=== PATIENT | female | born 1970 | race Caucasian/White ===

== ENCOUNTER 2019-03-03 21:40 | Emergency (ER) | payer OTHER ==
[2019-03-03 22:18] VITALS: PULSE 73
[2019-03-03 22:40] LABS: INR 0.9 (<1.2); Partial Thromboplastin Time 24.8 sec (22.0-30.0); Prothrombin Time 9.5 sec (9.0-12.0)
[2019-03-03] MEDS ORDERED: ASPIRIN 81 MG PO STA (22:41)
[2019-03-03 22:51] LABS: ALT 22 U/L (9-52); AST 19 U/L (14-36); African American GFR (CKD) >90 (>60 ml/min/1.73 sqM); Alkaline Phosphatase 87 U/L (38-126); Anion Gap 9 mmol/L; Blood Urea Nitrogen 15 mg/dL (7-17); Calcium 9.7 mg/dL (8.4-10.2); Carbon Dioxide 26 mmol/L (22-30); Chloride 108 mmol/L (98-107); Glucose 156 mg/dL (74-99); Magnesium 2.1 mg/dL (1.6-2.3); Non-African American GFR(CKD) >90 (>60 ml/min/1.73 sqM); Sodium 143 mmol/L (137-145); Total Bilirubin 0.1 mg/dL (0.2-1.3); Total Protein 6.9 g/dL (6.3-8.2)
--- NOTE | 2019-03-03 23:03 | ED ---
Chest Pain HPI - General Chief Complaint: Chest Pain Stated Complaint: chest pain Time Seen by Provider: 03/03/19 22:03 Source: patient Mode of arrival: wheelchair Limitations: no limitations - History of Present Illness Initial Comments: Nettie is a 48yo female with known CAD s/p STEMI 5 years ago stent placement. Patient was previously on Plavix but due to loss of insurance no longer takes that medication. She does take a daily aspirin. She has not followed up with cardiology a number of years she's not had a stress test since her STEMI. Javier lam presents the emergency department [facility] for evaluation of chest pain. Patient reports chest pain began on Wednesday. It is associated with shortness of breath but no diaphoresis or lightheadedness. Patient reports intermittent subjective fever with no chills nausea or vomiting. She denies any recent illness. Patient reports today she took a nitro with minimal improvement in her pain at which time her daughter decided to bring her to the ER for evaluation. - Related Data Home Medications Medication Instructions Recorded Confirmed No Known Home Medications 03/03/19 03/03/19 Allergies Allergy/AdvReac Type Severity Reaction Status Date / Time No Known Allergies Allergy Verified 03/03/19 22:45 Review of Systems ROS Statement: Those systems with pertinent positive or pertinent negative responses have been documented in the HPI. ROS Other: All systems not noted in ROS Statement are negative. EKG Findings - EKG Comments: EKG Findings:: EKG was obtained due to complaint of chest pain, EKG was obtained at 2201, rate is 70 rhythm is sinus is normal axis are normal intervals, SD 116, QRS 84, QTC is 412 there are no acute ST elevations or depressions or snow evidence of acute ischemia or infarction. Past Medical History Past Medical History: Hyperlipidemia, Hypertension, Myocardial Infarction ([place]) History of Any Multi-Drug Resistant Organisms: None Reported Past Surgical History: Section, Heart Catheterization With Stent Additional Past Surgical History / Comment(s): kidney transplant Past Psychological History: No Psychological Hx Reported Smoking Status: Current every day smoker Past Alcohol Use History: None Reported Past Drug Use History: None Reported General Exam - General Exam Comments Initial Comments: Physical Exam GENERAL: Patient is well-developed and well-nourished. Patient is nontoxic and well- hydrated and is in no distress. HENT: Normocephalic, Atraumatic. EYES: PERRL, EOMI PULMONARY: Unlabored respirations. No audible rales rhonchi or wheezing was noted. CARDIOVASCULAR: There is a regular rate and rhythm without any murmurs gallops or rubs. ABDOMEN: Soft and nontender with normal bowel sounds. SKIN: Skin is clear with no lesions or rashes and otherwise unremarkable. : Deferred NEUROLOGIC: Patient is alert and oriented x3. Moving all extremities spontaneously MUSCULOSKELETAL: Normal extremities with adequate strength and full range of motion. No lower extremity swelling or edema. No calf tenderness. PSYCHIATRIC: Normal psychiatric evaluation. Limitations: no limitations Course Vital Signs 03/03/19 03/03/19 03/03/19 21:46 22:10 23:24 Temperature 98.0 F 98.4 F Pulse Rate 83 73 73 Respiratory 18 14 18 Rate Blood Pressure 145/81 156/79 156/74 O2 Sat by Pulse 100 100 96 Oximetry Chest Pain MDM - MDM The patient was seen and evaluated, history was obtained from the patient Patient is a 48-year-old female with known coronary artery disease presenting w ith 3 days of chest pain, pain is nonexertional, not associated with any diaphoresis or lightheadedness. It is associated with shortness of breath. Patient does believe the pain improved this any after using nitro. Patient does have a history of coronary artery disease she does not follow up with cardiology she has not been compliant with her Plavix due to insurance issues. Arrival patient stated that she does not have insurance currently and if she is not having cardiac she will not stay in the hospital. Patients daughter at bedside states that she believes her mother is suffering from anxiety because daughter and 1mo old grandson are moving out of state in the coming week I offered the patient Nitro paste, as SL nitro had improved pain prior to arrival however patient declined stating that she did not plan on staying. Patient also concerned about cost. I advised the patient that there are multiple financial support systems and that her heart health is very important. Patient's troponin was negative patient was advised of this and stated that she like to leave. Patient aware that she is leaving AGAINST MEDICAL ADVICE The patient has decided to leave against medical advice because of concerns about cost and wanting to spend time with her family prior to them leaving the state The patient has adequate capacity to make medical decisions. The patient refuses hospital admission and wants to be discharged. The risks have been explained to the patient, including worsening illness, chronic pain, permanent disability and . The benefits of workup/admission have also been explained, including the availability and proximity of nurses, physicians, monitoring, diagnostic testing, treatment and valuation by cardiology The patient was able to understand and state the risks and benefits of hospital admission. This was witnessed by nurse Tammie and me. The patient the opportunity to ask questions about their medical condition. The patient was treated to the extent that they would allow and knows that they may return for care at any time. Disposition Clinical Impression: Chest pain Disposition: Left Against Medical Advice Condition: Fair Instructions (If sedation given, give patient instructions): Chest Pain (ED) Is patient prescribed a controlled substance at d/c from ED?: No Referrals: Naomi Wilson DO [Primary Care Provider] - 1-2 days
[2019-03-03 23:26] VITALS: BP 156/74; RESP 18; TEMP 98.4
[2019-03-03 23:42] LABS: Potassium 3.8 mmol/L (3.5-5.1)
== END 2019-03-03 23:17 | disposition left against medical advice (07) ==
LOC: EC 21:40
DX: R07.9 Chest pain, unspecified (principal); F41.9 Anxiety disorder, unspecified; R06.02 Shortness of breath; E78.5 Hyperlipidemia, unspecified; I10 Essential (primary) hypertension; I25.10 Atherosclerotic heart disease of native coronary artery without angina pectoris; I25.2 Old myocardial infarction; F17.200 Nicotine dependence, unspecified, uncomplicated; Z79.02 Long term (current) use of antithrombotics/antiplatelets; Z79.82 Long term (current) use of aspirin; Z95.5 Presence of coronary angioplasty implant and graft; Z91.19 Patient's noncompliance with other medical treatment and regimen; Z53.29 Procedure and treatment not carried out because of patient's decision for other reasons; Z94.0 Kidney transplant status
CPT/HCPCS: 36415; 80053; 83735; 83880; 84484; 85025; 85610; 85730; 93005; 99285

== ENCOUNTER 2023-08-27 04:02 | Inpatient (IN) | payer OTHER ==
[2023-08-27] MEDS: SODIUM CHLORIDE 0.9% 1,000 ML IV STA ×2 (04:40→10:15)
[2023-08-27 04:58] LABS: Basophils # (A) 0.1 k/uL (0-0.2); Basophils % (A) 0 %; Eosinophils # (A) 0.2 k/uL (0-0.7); Eosinophils % (A) 1 %; HCT 39.6 % (34.0-46.0); HGB 12.6 gm/dL (11.4-16.0); Lymphocytes # (A) 1.4 k/uL (1.0-4.8); Lymphocytes % (A) 8 %; MCH 29.7 pg (25.0-35.0); MCHC 31.8 g/dL (31.0-37.0); MCV 93.2 fL (80.0-100.0); Mean Platelet Volume 7.7; Monocytes # (A) 0.7 k/uL (0-1.0); Monocytes % (A) 4 %; Neutrophils # (A) 15.1 k/uL (1.3-7.7); Neutrophils % (A) 86 %; Platelet Count 315 k/uL (150-450); RBC 4.25 m/uL (3.80-5.40); RDW 13.1 % (11.5-15.5); WBC 17.5 k/uL (3.8-10.6)
[2023-08-27 05:08] LABS: ALT 15 U/L (4-34); AST 19 U/L (14-36); African American GFR (CKD) 86 (>60 ml/min/1.73 sqM); Albumin 3.8 g/dL (3.5-5.0); Alkaline Phosphatase 116 U/L (38-126); Anion Gap 3 mmol/L; Blood Urea Nitrogen 16 mg/dL (7-17); Calcium 9.7 mg/dL (8.4-10.2); Carbon Dioxide 26 mmol/L (22-30); Chloride 111 mmol/L (98-107); Glucose 134 mg/dL (74-99); Lipase 108 U/L (23-300); Non-African American GFR(CKD) 75 (>60 ml/min/1.73 sqM); Potassium 3.8 mmol/L (3.5-5.1); Sodium 140 mmol/L (137-145); Total Bilirubin 0.3 mg/dL (0.2-1.3); Total Protein 6.8 g/dL (6.3-8.2)
[2023-08-27] MEDS: HYDROmorphone 1 MG/ML 1 ML SYRINGE IVP STA ×2 (06:24→09:02)
[2023-08-27] MEDS: ONDANSETRON 4 MG/2 ML VIAL IVP STA (06:25)
[2023-08-27] MEDS: SODIUM CHLORIDE 0.9% 1,000 ML IV ONE (06:25)
--- NOTE | 2023-08-27 08:16 | ED ---
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 Describes it as a sharp, unrelenting pain without radiation. She denies any urinary or bowel complaints. No fevers. She did not take anything for the pain before coming in. Denies history of similar. She does not follow with a program manager to monitor her kidney function. No other alleviating, precipitating or modifying factors (Ethel Falk) - Related Data Home Medications Medication Instructions Recorded Confirmed No Known Home Medications 03/03/19 08/27/23 Allergies Allergy/AdvReac Type Severity Reaction Status Date / Time No Known Allergies Allergy Verified 08/27/23 09:46 Review of Systems ROS Other: All systems not noted in ROS Statement are negative. <Naun Pena - Last Filed: 08/27/23 09:39> ROS Other: All systems not noted in ROS Statement are negative. <Ethel Falk - Last Filed: 08/29/23 05:20> ROS Statement: Those systems with pertinent positive or pertinent negative responses have been documented in the HPI. Past Medical History Past Medical History: Hyperlipidemia, Hypertension, Myocardial Infarction ([place]) History of Any Multi-Drug Resistant Organisms: None Reported Past Surgical History: Section, Heart Catheterization With Stent Additional Past Surgical History / Comment(s): kidney transplant Past Psychological History: No Psychological Hx Reported Smoking Status: Current every day smoker Past Alcohol Use History: None Reported Past Drug Use History: None Reported <Ethel Falk - Last Filed: 08/29/23 05:20> General Exam Limitations: no limitations General appearance: alert, in distress, other (Patient in significant pain) Head exam: Present: atraumatic, normocephalic, normal inspection Eye exam: Present: normal appearance, PERRL, EOMI. Absent: scleral icterus, conjunctival injection, periorbital swelling ENT exam: Present: normal exam, mucous membranes moist Neck exam: Present: normal inspection. Absent: tenderness, meningismus, lymphadenopathy Respiratory exam: Present: normal lung sounds bilaterally. Absent: respiratory distress, wheezes, rales, rhonchi, stridor Cardiovascular Exam: Present: normal rhythm, tachycardia, normal heart sounds. Absent: systolic murmur, diastolic murmur, rubs, gallop, clicks GI/Abdominal exam: Present: soft, normal bowel sounds. Absent: distended, tenderness, guarding, rebound, rigid Extremities exam: Present: normal inspection, full ROM, normal capillary refill. Absent: tenderness, pedal edema, joint swelling, calf tenderness Back exam: Present: normal inspection, CVA tenderness (R) Neurological exam: Present: alert, oriented X3, CN II-XII intact Psychiatric exam: Present: normal affect, normal mood Skin exam: Present: warm, dry, intact, normal color. Absent: rash <Ethel Falk - Last Filed: 08/29/23 05:20> Course Vital Signs 08/27/23 08/27/23 08/27/23 04:04 07:32 08:11 Temperature 99.9 F H 99.1 F 99.8 F H Pulse Rate 102 H 86 92 Pulse Rate [ Pulse Oximetery ] Respiratory 20 18 18 Rate Blood Pressure 161/99 155/89 152/88 Blood Pressure [Left Arm] O2 Sat by Pulse 100 99 Oximetry 08/27/23 08/27/23 08/27/23 10:00 11:00 14:00 Temperature 100.1 F H Pulse Rate 114 H 118 H Pulse Rate [ 129 H Pulse Oximetery ] Respiratory 20 20 17 Rate Blood Pressure 157/100 134/80 Blood Pressure 112/63 [Left Arm] O2 Sat by Pulse 95 92 L 94 L Oximetry 08/27/23 08/27/23 14:22 14:23 Temperature Pulse Rate 126 H 120 H Pulse Rate [ Pulse Oximetery ] Respiratory 20 20 Rate Blood Pressure 140/87 140/87 Blood Pressure [Left Arm] O2 Sat by Pulse 98 998 H Oximetry Medical Decision Making - Lab Data Result diagrams: 08/27/23 04:56 08/27/23 04:56 <Naun Pena - Last Filed: 08/27/23 09:39> - Lab Data Result diagrams: 08/28/23 06:47 08/28/23 06:47 <Ethel Falk - Last Filed: 08/29/23 05:20> - Medical Decision Making CT scan interpreted by myself shows right-sided UPJ stone 5 mm with hydronephrosis. Patient reevaluated and still complains of pain and nausea. Patient is updated on results and need for urine. Family is complaining of wait time however patient still has not provided urine. They are made aware of this. Case was discussed with Dr. Fuchs who would like to know urine results and he will be called back. Diagnosis: Ureterolithiasis, acute Comorbidity of single kidney status post donated kidney Complicated with elevated temperature of 99.8 Patient again reevaluated and still complaining of discomfort. Patient and family are updated. Patient does have concern for infection diagnosed at 9:40 AM. Blood culture and lactic acid and IV antibiotics have all been ordered. Case again discussed with Dr. Fuchs who will admit. He does request culture and antibiotics and n.p.o. 33 minutes total critical care (Naun Pena) Was pt. sent in by a medical professional or institution (, PA, ELECTRICAL FITTER, urgent care, hospital, or prison...) When possible be specific @ -No Did you speak to anyone other than the patient for history (EMS, parent, family, police, friend...)? What history was obtained from this source @ -Spoke with the patient's Did you review nursing and triage notes (agree or disagree)? Why? @ -I reviewed and agree with nursing and triage notes Were old charts reviewed (outside hosp., previous admission, EMS record, old EKG, old radiological studies, urgent care reports/EKG's, prison records)? Report findings @ -No old charts were reviewed Differential Diagnosis (chest pain, altered mental status, abdominal pain women, abdominal pain men, vaginal bleeding, weakness, fever, dyspnea, syncope, headache, dizziness, GI bleed, back pain, seizure, CVA, palpatations, mental health, musculoskeletal)? @ -Differential Abdominal Pain Women: Appendicitis, Cholecystitis, diverticulosis, ischemic bowel, pancreatitis, hepatitis, UTI, gastroenteritis, AAA, incarcerated hernia, bowel obstruction, constipation, inflammatory bowel, hepatitis, peptic ulcer disease, splenic infarction, perforated viscus, vulvitis, ovarian torsion, PID, kidney stone, placenta abruption, this is not meant to be an all-inclusive list EKG interpreted by me (3pts min.). @ -Not done X-rays interpreted by me (1pt min.). @ -None done CT interpreted by me (1pt min.). @ -Ordered however CT is pending at this time U/S interpreted by me (1pt. min.). @ -None done What testing was considered but not performed or refused? (CT, X-rays, U/S, labs)? Why? @ -None What meds were considered but not given or refused? Why? @ -None Did you discuss the management of the patient with other professionals (prof ziyad i.e. , PA, ELECTRICAL FITTER, lab, RT, psych nurse, social media strategist, varnish finisher, teacher, flight deck officer, home health care case manager)? Give summary @ -Spoke with Dr. Pena who will take over care of this patient Was smoking cessation discussed for >3mins.? @ -No Was critical care preformed (if so, how long)? @ -No Were there social determinants of health that impacted care today? How? (Homelessness, low income, unemployed, alcoholism, drug addiction, transportation, low edu. Level, literacy, decrease access to med. care, long-term, rehab)? @ -No Was there de-escalation of care discussed even if they declined (Discuss DNR or withdrawal of care, Hospice)? DNR status @ -No What co-morbidities impacted this encounter? (DM, HTN, Smoking, COPD, CAD, Cancer, CVA, ARF, Chemo, Hep., AIDS, mental health diagnosis, sleep apnea, morbid obesity)? @ -Single kidney Was patient admitted / discharged? Hospital course, mention meds given and route, prescriptions, significant lab abnormalities, going to OR and other pertinent info. @ -Upon arrival patient seen and evaluated in room 26. Thorough history and physical exam was performed. IV was established. Patient was given Dilaudid for pain control. Laboratory studies are conducted. CT is performed. Awaiting CT and urinalysis at this time. Patient will be signed out to Dr. Pena. (Ethel Falk) - Lab Data Lab Results 08/27/23 08/27/23 08/27/23 Range/Units 04:45 04:56 04:56 WBC 17.5 H (3.8-10.6) k/uL RBC 4.25 (3.80-5.40) m/uL Hgb 12.6 (11.4-16.0) gm/dL Hct 39.6 (34.0-46.0) % MCV 93.2 (80.0-100.0) fL MCH 29.7 (25.0-35.0) pg MCHC 31.8 (31.0-37.0) g/dL RDW 13.1 (11.5-15.5) % Plt Count 315 (150-450) k/uL MPV 7.7 Neutrophils % 86 % Lymphocytes % 8 % Monocytes % 4 % Eosinophils % 1 % Basophils % 0 % Neutrophils # 15.1 H (1.3-7.7) k/uL Lymphocytes # 1.4 (1.0-4.8) k/uL Monocytes # 0.7 (0-1.0) k/uL Eosinophils # 0.2 (0-0.7) k/uL Basophils # 0.1 (0-0.2) k/uL Sodium 140 (137-145) mmol/L Potassium 3.8 (3.5-5.1) mmol/L Chloride 111 H (98-107) mmol/L Carbon Dioxide 26 (22-30) mmol/L Anion Gap 3 mmol/L BUN 16 (7-17) mg/dL Creatinine 0.90 (0.52-1.04) mg/dL Est GFR (CKD-EPI)AfAm 86 (>60 ml/min/1.73 sqM) Est GFR (CKD-EPI)NonAf 75 (>60 ml/min/1.73 sqM) Glucose 134 H (74-99) mg/dL Plasma Lactic Acid [place] 1.2 (0.7-2.0) mmol/L Calcium 9.7 (8.4-10.2) mg/dL Total Bilirubin 0.3 (0.2-1.3) mg/dL AST 19 (14-36) U/L ALT 15 (4-34) U/L Alkaline Phosphatase 116 (38-126) U/L Total Protein 6.8 (6.3-8.2) g/dL Albumin 3.8 (3.5-5.0) g/dL Lipase 108 (23-300) U/L Urine Color Urine Appearance (Clear) Urine pH (5.0-8.0) Ur Specific [place] (1.001-1.035) Urine Protein (Negative) Urine Glucose (UA) (Negative) Urine Ketones (Negative) Urine Blood (Negative) Urine Nitrite (Negative) Urine Bilirubin (Negative) Urine Urobilinogen (<2.0) mg/dL Ur Leukocyte Esterase (Negative) Urine RBC (0-5) /hpf Urine WBC (0-5) /hpf Urine WBC Clumps (None) /hpf Ur Squamous Epith Cells (0-4) /hpf Urine Bacteria (None) /hpf 08/27/23 08/27/23 Range/Units 07:13 08:57 WBC (3.8-10.6) k/uL RBC (3.80-5.40) m/uL Hgb (11.4-16.0) gm/dL Hct (34.0-46.0) % MCV (80.0-100.0) fL MCH (25.0-35.0) pg MCHC (31.0-37.0) g/dL RDW (11.5-15.5) % Plt Count (150-450) k/uL MPV Neutrophils % % Lymphocytes % % Monocytes % % Eosinophils % % Basophils % % Neutrophils # (1.3-7.7) k/uL Lymphocytes # (1.0-4.8) k/uL Monocytes # (0-1.0) k/uL Eosinophils # (0-0.7) k/uL Basophils # (0-0.2) k/uL Sodium (137-145) mmol/L Potassium (3.5-5.1) mmol/L Chloride (98-107) mmol/L Carbon Dioxide (22-30) mmol/L Anion Gap mmol/L BUN (7-17) mg/dL Creatinine (0.52-1.04) mg/dL Est GFR (CKD-EPI)AfAm (>60 ml/min/1.73 sqM) Est GFR (CKD-EPI)NonAf (>60 ml/min/1.73 sqM) Glucose (74-99) mg/dL Plasma Lactic Acid [place] 1.5 (0.7-2.0) mmol/L Calcium (8.4-10.2) mg/dL Total Bilirubin (0.2-1.3) mg/dL AST (14-36) U/L ALT (4-34) U/L Alkaline Phosphatase (38-126) U/L Total Protein (6.3-8.2) g/dL Albumin (3.5-5.0) g/dL Lipase (23-300) U/L Urine Color Colorless Urine Appearance Cloudy H (Clear) Urine pH 5.5 (5.0-8.0) Ur Specific [place] 1.011 (1.001-1.035) Urine Protein 1+ H (Negative) Urine Glucose (UA) Negative (Negative) Urine Ketones Negative (Negative) Urine Blood Small H (Negative) Urine Nitrite Positive H (Negative) Urine Bilirubin Negative (Negative) Urine Urobilinogen <2.0 (<2.0) mg/dL Ur Leukocyte Esterase Large H (Negative) Urine RBC 17 H (0-5) /hpf Urine WBC >182 H (0-5) /hpf Urine WBC Clumps Few H (None) /hpf Ur Squamous Epith Cells <1 (0-4) /hpf Urine Bacteria Rare H (None) /hpf Critical Care Time Critical Care Time: Yes Total Critical Care Time: 33 <Naun Pena - Last Filed: 08/27/23 09:39> Disposition Is patient prescribed a controlled substance at d/c from ED?: No Time of Disposition: 09:41 <Naun Pena - Last Filed: 08/27/23 09:39> <Ethel Falk - Last Filed: 08/29/23 05:20> Clinical Impression: Ureterolithiasis Disposition: ADMITTED IP TO THIS HOSP Condition: Serious
--- NOTE | 2023-08-27 08:30 | CT ---
EXAMINATION TYPE: CT abdomen pelvis wo con DATE OF EXAM: 08/27/2023 COMPARISON: None INDICATION: right flank pain , heamtueia, h/o uterine CA with mets DLP: 419.6 mGycm, Automated exposure control for dose reduction was used. CONTRAST: 0 mL of Isovue 300. Study performed without Oral Contrast TECHNIQUE: Axial images were obtained from above the diaphragm to the pubic rami in the axial plane a t 5 mm thick sections. Reconstructed images are reviewed on the computer in the coronal plane. FINDINGS: Limited CT sections are obtained the lung bases. The lung bases are clear. Some coronary artery jenifer cification is present. CT ABDOMEN: Liver: Normal Spleen: Normal Pancreas: Normal Adrenal glands: The adrenal glands are normal. Gallbladder: Normal Kidneys: The right kidney is enlarged. There is prominent hydronephrosis present. An obstructing lew l stone at the ureteropelvic junction on the right knee be present measuring 0.5 cm. Mild hydroureter with periureteral stranding may be present proximally. Distal ureter is unremarkable. Left kidney is absent Aorta: Vascular calcification is within the aorta. Inferior vena cava: Normal. CT PELVIS: Loops of bowel within the abdomen and pelvis are normal. This study is performed without oral con trast limiting bowel evaluation. Appendix: Normal as visualized. Urinary bladder: Normal. Genitourinary structures: Uterus is unremarkable. Patient's reported uterine cancer is not appreciate d on the CT exam. Adnexa is normal. Osseous structures: No suspicious lytic or sclerotic lesions. IMPRESSION: 1. 0.5 cm obstructing right ureterovesical junction stone with hydronephrosis. 2. Note is made patient has a solitary right kidney without evidence of left kidney. 3. Normal appendix
[2023-08-27] MEDS: METOCLOPRAMIDE 5 MG/ML 2 ML VIAL IVP STA ×2 (09:01→10:21)
[2023-08-27 09:31] LABS: Appearance,Urine Cloudy (Clear); Bacteria,Urine Rare /hpf; Bilirubin,Urine Negative (Negative); Blood,Urine Small (Negative); Color,Urine Colorless; Glucose,Urine (UA) Negative (Negative); Ketones,Urine Negative (Negative); Leukocyte Esterase,Urine Large (Negative); Nitrite,Urine Positive (Negative); PH, Urine 5.5 (5.0-8.0); Protein,Urine 1+ (Negative); RBC,Urine 17 /hpf (0-5); Specific Gravity,Urine 1.011 (1.001-1.035); Squamous Epithelial Cell,Urine <1 /hpf (0-4); Urobilinogen,Urine <2.0 mg/dL (<2.0); WBC,Urine >182 /hpf (0-5)
[2023-08-27] MEDS ORDERED: NALOXONE 0.4 MG/ML 1 ML VIAL IV PRN (09:41)
[2023-08-27] MEDS: ACETAMINOPHEN IV (For NPO) 1,000 MG in EMPTY BAG 1 BAG IVPB STA (10:14)
--- NOTE | 2023-08-27 13:50 | P.GSHP ---
History of Present Illness H&P Date: 08/27/23 Chief Complaint: Right flank pain The patient is a 52-year-old white female who underwent a left donor nephrectomy approximately 25 years ago. She was treated for UTI during a , but has no other history of UTIs or urolithiasis. She now presents with acute right fla nk pain radiating to the abdomen. CT scan shows evidence of moderate right hydronephrosis due to a 5 mm right UPJ calculus. - Constitutional Constitutional: Denies chills, Denies fever Past Medical History Past Medical History: Hyperlipidemia, Hypertension, Myocardial Infarction ([place]) History of Any Multi-Drug Resistant Organisms: None Reported Past Surgical History: Section, Heart Catheterization With Stent Additional Past Surgical History / Comment(s): kidney transplant Past Psychological History: No Psychological Hx Reported Smoking Status: Current every day smoker Past Alcohol Use History: None Reported Past Drug Use History: None Reported Medications and Allergies Home Medications Medication Instructions Recorded Confirmed Type No Known Home Medications 03/03/19 08/27/23 History Allergies Allergy/AdvReac Type Severity Reaction Status Date / Time No Known Allergies Allergy Verified 08/27/23 09:46 Surgical - Exam Vital Signs Temp Pulse Resp BP Pulse Ox 99.9 F H 102 H 20 161/99 100 08/27/23 04:04 08/27/23 04:04 08/27/23 04:04 08/27/23 04:04 08/27/23 04:04 - General well developed, well nourished, no distress - Neck no masses, trachea midline - Respiratory normal respiratory effort - Abdomen Soft, non-distended, no mass. Mild right-sided tenderness and right CVA tenderness. No guarding or rebound. - Psychiatric oriented to time, oriented to person, oriented to place, speech is normal, memory intact Results - Labs 08/27/23 04:56 08/27/23 04:56 Abnormal Lab Results - Last 24 Hours (Table) 08/27/23 08/27/23 08/27/23 Range/Units 04:56 04:56 08:57 WBC 17.5 H (3.8-10.6) k/uL Neutrophils # 15.1 H (1.3-7.7) k/uL Chloride 111 H (98-107) mmol/L Glucose 134 H (74-99) mg/dL Urine Appearance Cloudy H (Clear) Urine Protein 1+ H (Negative) Urine Blood Small H (Negative) Urine Nitrite Positive H (Negative) Ur Leukocyte Esterase Large H (Negative) Urine RBC 17 H (0-5) /hpf Urine WBC >182 H (0-5) /hpf Urine WBC Clumps Few H (None) /hpf Urine Bacteria Rare H (None) /hpf Diabetes panel 08/27/23 Range/Units 04:56 Sodium 140 (137-145) mmol/L Potassium 3.8 (3.5-5.1) mmol/L Chloride 111 H (98-107) mmol/L Carbon Dioxide 26 (22-30) mmol/L BUN 16 (7-17) mg/dL Creatinine 0.90 (0.52-1.04) mg/dL Glucose 134 H (74-99) mg/dL Calcium 9.7 (8.4-10.2) mg/dL AST 19 (14-36) U/L ALT 15 (4-34) U/L Alkaline Phosphatase 116 (38-126) U/L Total Protein 6.8 (6.3-8.2) g/dL Albumin 3.8 (3.5-5.0) g/dL Calcium panel 08/27/23 Range/Units 04:56 Calcium 9.7 (8.4-10.2) mg/dL Albumin 3.8 (3.5-5.0) g/dL Pituitary panel 08/27/23 Range/Units 04:56 Sodium 140 (137-145) mmol/L Potassium 3.8 (3.5-5.1) mmol/L Chloride 111 H (98-107) mmol/L Carbon Dioxide 26 (22-30) mmol/L BUN 16 (7-17) mg/dL Creatinine 0.90 (0.52-1.04) mg/dL Glucose 134 H (74-99) mg/dL Calcium 9.7 (8.4-10.2) mg/dL Adrenal panel 08/27/23 Range/Units 04:56 Sodium 140 (137-145) mmol/L Potassium 3.8 (3.5-5.1) mmol/L Chloride 111 H (98-107) mmol/L Carbon Dioxide 26 (22-30) mmol/L BUN 16 (7-17) mg/dL Creatinine 0.90 (0.52-1.04) mg/dL Glucose 134 H (74-99) mg/dL Calcium 9.7 (8.4-10.2) mg/dL Total Bilirubin 0.3 (0.2-1.3) mg/dL AST 19 (14-36) U/L ALT 15 (4-34) U/L Alkaline Phosphatase 116 (38-126) U/L Total Protein 6.8 (6.3-8.2) g/dL Albumin 3.8 (3.5-5.0) g/dL - Imaging CT scan - abdomen: report reviewed, image reviewed Assessment and Plan (1) Ureterolithiasis Current Visit: Yes Status: Acute Code(s): N20.1 - CALCULUS OF URETER SNOMED Code(s): 63723765 (2) Hydronephrosis with renal and ureteral calculous obstruction Current Visit: Yes Status: Acute Code(s): N13.2 - HYDRONEPHROSIS WITH RENAL AND URETERAL CALCULOUS OBSTRUCTION SNOMED Code(s): 774198562 (3) Urinary tract infection, site not specified Current Visit: Yes Status: Acute Code(s): N39.0 - URINARY TRACT INFECTION, SITE NOT SPECIFIED SNOMED Code(s): 62139376 Plan: I explained to the patient that she has a UTI complicated by an obstructing right UPJ calculus. Making this even more complicated is the fact that this is a solitary kidney. She has been admitted and started on IV antibiotics. I had a lengthy discussion with the patient and her mother. I have advised her to undergo cystoscopy with right ureteral stent insertion later today, both to preserve right renal function and to assist in clearing her UTI. I also explained to her that she will require a secondary procedure, to remove the calculus and ureteral stent. Risks associated with stent placement include anesthesia, bleeding, infection, ureteral injury, and inability to successfully place the stent. Time with Patient: Greater than 30
[2023-08-27] MEDS: HYDROmorphone 1 MG/ML 1 ML SYRINGE IVP PRN (14:19)
[2023-08-27] MEDS: ONDANSETRON 4 MG/2 ML VIAL IVP PRN (14:19)
[2023-08-27] MEDS: IV FLUID CONTINUATION 800 ML IV ONE (15:29)
[2023-08-27] MEDS ORDERED: PROPOFOL 10 MG/ML 20 ML VIAL IV ONE (15:31)
[2023-08-27] MEDS ORDERED: LIDOCAINE 1% INJ 10MG/ML (20 ML MDV) ONE (15:31)
[2023-08-27] MEDS ORDERED: SUCCINYLCHOLINE CHLORIDE 200 MG/10 ML VIAL IV ONE (15:31)
[2023-08-27] MEDS ORDERED: fentaNYL (PF) 50 MCG/ML 2 ML AMP ONE (15:31)
[2023-08-27] MEDS ORDERED: PHENYLEPHRINE-0.9% NACL SYG 1,000 MCG/10 ML SYRINGE ONE (15:31)
[2023-08-27] MEDS: LACTATED RINGERS 1,000 ML IV ONE (16:02)
--- NOTE | 2023-08-27 16:14 | P.OP ---
Date of Procedure: 08/27/23 Preoperative Diagnosis: Right hydronephrosis secondary to right UPJ calculus Postoperative Diagnosis: Same Procedure(s) Performed: Cystoscopy, right ureteral stent insertion Anesthesia: KAILEEA Surgeon: Ed Ragland Estimated Blood Loss (ml): 0 IV fluids (ml): 700 Pathology: none sent Condition: stable Disposition: PACU Indications for Procedure: The patient is a 52-year-old white female who underwent a left donor nephrectomy approximately 25 years ago. She was treated for UTI during a , but has no other history of UTIs or urolithiasis. She now presents with acute right flank pain radiating to the abdomen. CT scan shows evidence of moderate right hydronephrosis due to a 5 mm right UPJ calculus. Urinalysis is consistent with infection, and she is febrile. She now comes for stent insertion. Operative Findings: Successful right ureteral stent insertion. Description of Procedure: The patient was taken to the operating room and placed in the dorsolithotomy position, with legs supported in Ethan stirrups. The external genitalia was prepped and draped sterilely. The 30 lens was used to introduce the 22-[place] Stortz cystoscopic sheath through the urethra and into the bladder under direct vision. The bladder was examined in its entirety. Both ureteral orifices were of normal anatomic location and configuration. No tumors or foreign bodies were seen. A 0.035 inch Glidewire was passed through the cystoscope. The right ureteral orifice was cannulated, and the Glidewire was slowly advanced up to the renal pelvis. Initially, a 22 cm, 6 Kyrgyz double-J ureteral stent was placed over the wire. However, it was not clear whether the proximal end of the stent resided within the renal pelvis or the proximal ureter. Therefore, the stent was removed and over a wire was exchanged for a 24 cm, 6-Kyrgyz double-J ureteral stent. Proper stent positioning was verified fluoroscopically and endoscopically. After the stent was placed, slightly cloudy urine was noted to drain through and around the stent. With the beak of the cystoscope immediately adjacent to the stent, urine was collected and sent for culture and sensitivity. The bladder was emptied and the cystoscope removed. The patient tolerated the procedure well was taken to the recovery room in stable condition.
--- NOTE | 2023-08-27 16:47 | FL ---
EXAMINATION TYPE: FL guidance operating room Intraoperative/procedural fluoroscopic services were pro vided. Total fluoroscopy time is 15.3 seconds with a total of 2 submitted images to PACS. Please see the operative/procedural note for further details. DAP: 1.0849 Gycm2
[2023-08-27] MEDS: ACETAMINOPHEN TAB 500 MG TAB PO PRN (19:01)
[2023-08-27] MEDS: HYDROmorphone 0.5 MG/0.5 ML SYRINGE IVP PRN (22:02)
[2023-08-28 09:25] LABS: Basophils % (A) 0.5 %; Eosinophils # (A) 0.11 X 10*3/uL (0.04-0.35); Eosinophils % (A) 0.5 %; HGB 12.4 g/dL (12.0-15.0); Lymphocytes # (A) 2.09 X 10*3/uL (0.90-5.00); Lymphocytes % (A) 9.9 %; MCH 29.2 pg (27.0-32.0); MCHC 30.2 g/dL (32.0-37.0); MCV 96.5 FL (80.0-97.0); Mean Platelet Volume 11.5 FL (9.5-12.2); Monocytes # (A) 1.12 X 10*3/uL (0.20-1.00); Monocytes % (A) 5.3 %; NRBC Per 100 WBC 0 X 10*3/uL (0.00-0.01); Neutrophils # (A) 17.58 X 10*3/uL (1.80-7.70); Neutrophils % (A) 83.1 %; Platelet Count 193 X 10*3/uL (140-440); RBC 4.25 X 10*6/uL (4.10-5.20); RDW 13.2 % (11.5-14.5); WBC 21.15 X 10*3/uL (4.50-10.00)
[2023-08-28 09:48] LABS: ALT 12 U/L (8-44); AST 25 U/L (13-35); Albumin 3.3 g/dL (3.8-4.9); Albumin/Globulin Ratio 1.27 Ratio (1.60-3.17); Alkaline Phosphatase 106 U/L (41-126); BUN/Creat Ratio 12.64 Ratio (12.00-20.00); Blood Urea Nitrogen 13.9 mg/dL (9.0-27.0); Calcium 8.7 mg/dL (8.7-10.3); Carbon Dioxide 21.9 mmol/L (21.6-31.8); Chloride 109 mmol/L (96-109); Globulin 2.6 g/dL (1.6-3.3); Glucose 72 mg/dL (70-110); Potassium 4.8 mmol/L (3.5-5.5); Sodium 141 mmol/L (135-145); Total Bilirubin 0.3 mg/dL (0.3-1.2); Total Protein 5.9 g/dL (6.2-8.2)
[2023-08-28] MEDS: PANTOPRAZOLE 40 MG/10 ML VIAL IV SCH (10:01)
--- NOTE | 2023-08-28 11:51 | P.PN ---
Subjective Progress Note Date: 08/28/23 Principal diagnosis: UTI with sepsis Patient was admitted with a UTI, complicated by right hydronephrosis due to a right UPJ calculus. She underwent right ureteral stent insertion on August 27, 2023 is currently receiving Rocephin. Blood cultures have shown gram-negative bacilli. The patient reports mild right-sided discomfort along with urinary frequency and urgency. Objective - Vital Signs Vital signs: Vital Signs Temp 97.9 F 08/28/23 02:01 Pulse 92 08/28/23 02:01 Resp 15 08/28/23 02:01 BP 104/66 08/28/23 02:01 Pulse Ox 92 L 08/28/23 02:01 FiO2 Intake & Output 08/27/23 08/28/23 08/28/23 18:59 06:59 18:59 Intake Total 850 1000 Output Total 0 Balance 850 1000 Weight 68.039 kg Intake: IV 850 Oral 1000 Output: Estimated Blood Loss 0 Other: Voiding Method Toilet # Voids 1 4 - Constitutional General appearance: Present: no acute distress - Gastrointestinal Gastrointestinal Comment(s): Soft, non-distended. Mild right-sided tenderness, no guarding or rebound. - Psychiatric Psychiatric: Present: A&O x's 3 - Labs CBC & Chem 7: 08/28/23 06:47 08/28/23 06:47 Labs: Abnormal Lab Results - Last 24 Hours (Table) 08/27/23 Range/Units 08:57 Urine Appearance Cloudy H (Clear) Urine Protein 1+ H (Negative) Urine Blood Small H (Negative) Urine Nitrite Positive H (Negative) Ur Leukocyte Esterase Large H (Negative) Urine RBC 17 H (0-5) /hpf Urine WBC >182 H (0-5) /hpf Urine WBC Clumps Few H (None) /hpf Urine Bacteria Rare H (None) /hpf Assessment and Plan (1) Ureterolithiasis Current Visit: Yes Status: Acute Code(s): N20.1 - CALCULUS OF URETER SNOMED Code(s): 99208786 (2) Hydronephrosis with renal and ureteral calculous obstruction Current Visit: Yes Status: Acute Code(s): N13.2 - HYDRONEPHROSIS WITH RENAL AND URETERAL CALCULOUS OBSTRUCTION SNOMED Code(s): 991127375 (3) Urinary tract infection, site not specified Current Visit: Yes Status: Acute Code(s): N39.0 - URINARY TRACT INFECTION, S ITE NOT SPECIFIED SNOMED Code(s): 89770925 Plan: The patient has acute right pyelonephritis complicated by an obstructing right UPJ calculus. Making this even more complicated is the fact that this is a solitary kidney. Blood cultures have shown gram-negative bacilli, and she is currently receiving Rocephin. Rocephin will be continued, pending the final culture results. She states that she is feeling better and wishes to be discharged home. I explained to her the risk involved with such a decision, and the need for her to remain hospitalized until cultures are completed and she can be discharged home on appropriate oral antibiotics. I also explained that once the infection is cleared, she will require a secondary procedure consisting of cystoscopy, right ureteral stent removal, right ureteroscopy with laser lithotripsy and stone basketing. I have prescribed tamsulosin and oxybutynin to help alleviate stent discomfort.
[2023-08-28] MEDS: TAMSULOSIN 0.4 MG CAP.ER.24H PO SCH (12:32)
[2023-08-28] MEDS: OXYBUTYNIN XL 5 MG TAB.ER.24 PO SCH (13:03)
--- NOTE | 2023-08-29 15:26 | P.PN ---
Subjective Progress Note Date: 08/29/23 Principal diagnosis: UTI with sepsis Patient was admitted with a UTI, complicated by right hydronephrosis due to a right UPJ calculus. She underwent right ureteral stent insertion on August 27, 2023 is currently receiving Rocephin. Urine and blood cultures have shown gram-negative bacilli. The patient reports mild right-sided discomfort, which is improving. She also reports urinary frequency and urgency. Objective - Vital Signs Vital signs: Vital Signs Temp 99.8 F H 08/29/23 07:01 Pulse 94 08/29/23 07:01 Resp 17 08/29/23 07:01 BP 132/77 08/29/23 07:01 Pulse Ox 94 L 08/29/23 07:01 FiO2 Intake & Output 08/28/23 08/29/23 08/29/23 18:59 06:59 18:59 Intake Total 1000 Balance 1000 Intake: Oral 1000 Other: Voiding Method Toilet Toilet # Voids 3 - Constitutional General appearance: Present: average body habitus, no acute distress - Gastrointestinal Gastrointestinal Comment(s): Soft, non-tender, non-distended, no mass. - Psychiatric Psychiatric: Present: A&O x's 3 - Labs CBC & Chem 7: 08/28/23 06:47 08/28/23 06:47 Labs: Abnormal Lab Results - Last 24 Hours (Table) 08/28/23 08/28/23 Range/Units 06:47 06:47 WBC 21.15 H (4.50-10.00) X 10*3/uL MCHC 30.2 L (32.0-37.0) g/dL Immature Gran # 0.15 H (0.00-0.04) X 10*3/uL Neutrophils # 17.58 H (1.80-7.70) X 10*3/uL Monocytes # 1.12 H (0.20-1.00) X 10*3/uL Total Protein 5.9 L (6.2-8.2) g/dL Albumin 3.3 L (3.8-4.9) g/dL Albumin/Globulin Ratio 1.27 L (1.60-3.17) Ratio Microbiology - Last 24 Hours (Table) 08/27/23 09:45 Blood Culture Gram Stain - Preliminary Blood 08/27/23 10:04 Blood Culture Gram Stain - Preliminary Blood Assessment and Plan (1) Ureterolithiasis Current Visit: Yes Status: Acute Code(s): N20.1 - CALCULUS OF URETER SNOMED Code(s): 18279643 (2) Hydronephrosis with renal and ureteral calculous obstruction Current Visit: Yes Status: Acute Code(s): N13.2 - HYDRONEPHROSIS WITH RENAL AND URETERAL CALCULOUS OBSTRUCTION SNOMED Code(s): 095270981 (3) Urinary tract infection, site not specified Current Visit: Yes Status: Acute Code(s): N39.0 - URINARY TRACT INFECTION, SITE NOT SPECIFIED SNOMED Code(s): 69999322 Plan: The patient has acute right pyelonephritis complicated by an obstructing right UPJ calculus. Making this even more complicated is the fact that this is a solitary kidney. Urine and blood cultures have shown gram-negative bacilli, and she is currently receiving Rocephin. Rocephin will be continued, pending the final culture results. She will be discharged home on culture appropriate antibiotics once she is afebrile, and arrangements will be made for her to undergo cystoscopy, right ureteral stent removal, right ureteroscopy with laser lithotripsy and stone basketing on 09/08/2013. She is currently receiving tamsulosin and oxybutynin to help alleviate stent discomfort.
[2023-08-30 08:22] VITALS: RESP 18
[2023-08-30] MEDS: PANTOPRAZOLE 40 MG TABLET PO SCH (08:31)
--- NOTE | 2023-08-30 12:13 | P.DS ---
Providers Date of admission: 08/27/23 09:42 Attending physician: Ed Ragland Primary care physician: Stated None Hospital Course: This is a 52-year-old female admitted to the hospital with sepsis secondary to a 5 mm right-sided ureteral stone and history of a solitary kidney. Patient underwent emergent right-sided stent insertion with Dr. Ragland on august 26 . Please see op note dated August 26 for surgery details. Her urine culture was growing E. coli. She was discharged home on August 29, with a 10-day course of Cipro. She is tentatively scheduled for a right-sided ureteroscopy with holmium laser with Dr. Fuchs on September 08. At time of discharge she was tolerating a diet, ambulating, pain was controlled. She has remained afebrile for greater than 24 hours Patient Condition at Discharge: Serious Plan - Discharge Summary Discharge Rx Participant: No New Discharge Prescriptions: No Action No Known Home Medications Discharge Medication List No Known Home Medications 03/03/19 [History] Follow up Appointment(s)/Referral(s): None,Stated [Primary Care Provider] - 1-2 days
[2023-08-30 12:46] VITALS: BP 136/83; PULSE 74; TEMP 98.2
== END 2023-08-30 13:50 | disposition home or self-care (01) | DRG 854 ==
LOC: EC 04:02 → 5NMEDONC 09:41 → OBSVTOIN 09:42 → 5NMEDONC 13:23
PROVIDERS: ADMIT Urology; ATTEND Urology
PROC: 0T768DZ Dilation of Right Ureter with Intraluminal Device, Via Natural or Artificial Opening Endoscopic (ICD-10-PCS; principal; 2023-08-27 10:05)
DX: A41.51 Sepsis due to Escherichia coli [E. coli] (principal); N13.6 Pyonephrosis; Z87.442 Personal history of urinary calculi; E78.5 Hyperlipidemia, unspecified; I10 Essential (primary) hypertension; I25.2 Old myocardial infarction; Z90.5 Acquired absence of kidney
CPT/HCPCS: 36415; 74176; 80053; 81001; 83605; 83690; 85025; 87040; 87077; 87086; 87186; 96361; 96365; 96368; 96375; 96376; 99291

== ENCOUNTER → 2023-09-09 | Day surgery (SDC) | payer SELFPAY ==
--- NOTE | 2023-09-05 07:54 | P.GSHP ---
History of Present Illness H&P Date: 09/02/23 Chief Complaint: Right flank pain The patient is a 52-year-old white female who underwent a left donor nephrectomy approximately 25 years ago. She was treated for UTI during a , but has no other history of UTIs or urolithiasis. She presented recently with acute rig ht flank pain radiating to the abdomen. CT scan showed evidence of moderate right hydronephrosis due to a 5 mm right UPJ calculus. Urine and blood cultures showed E. coli. She underwent placement of a right ureteral stent on August 27, 2023 and has been treated with antibiotics. She now comes for removal of her UPJ calculus. - Constitutional Constitutional: Denies chills, Denies fever - Genitourinary (Female) Genitourinary: Reports flank pain, Reports kidney stones Past Medical History Past Medical History: Hyperlipidemia, Hypertension, Myocardial Infarction ([place]) Additional Past Medical History / Comment(s): kidney stone Last Myocardial Infarction Date:: 03/2015 History of Any Multi-Drug Resistant Organisms: None Reported Past Surgical History: Section, Heart Catheterization With Stent Additional Past Surgical History / Comment(s): kidney transplant Past Anesthesia/Blood Transfusion Reactions: No Reported Reaction Date of Last Stent Placement:: 03/2015 Past Psychological History: No Psychological Hx Reported Smoking Status: Current every day smoker Past Alcohol Use History: None Reported Past Drug Use History: None Reported Medications and Allergies Home Medications Medication Instructions Recorded Confirmed Type Ciprofloxacin HCl [Cipro] 500 mg PO BID 10 Days #20 tab 08/30/23 Rx Oxybutynin ER [Ditropan XL] 10 mg PO DAILY #14 tab 08/30/23 Rx Allergies Allergy/AdvReac Type Severity Reaction Status Date / Time No Known Allergies Allergy Verified 08/27/23 09:46 Surgical - Exam - General well developed, well nourished, moderate distress - Respiratory normal respiratory effort - Abdomen Abdomen: soft, non tender, no guarding, no rigid, no rebound - Genitourinary normal external genitalia - Psychiatric oriented to time, oriented to person, oriented to place, speech is normal, memory intact Assessment and Plan (1) Hydronephrosis with renal and ureteral calculous obstruction Status: Acute Code(s): N13.2 - HYDRONEPHROSIS WITH RENAL AND URETERAL CALCULOUS OBSTRUCTION SNOMED Code(s): 488121961 Plan: Cystoscopy, right ureteral stent removal, right ureteroscopy with Holmium laser lithotripsy and possible stone basketing. The procedure has been reviewed in detail with the patient. She has been made aware of potential risks, which include anesthesia, bleeding, infection, inability to remove the calculus, and ureteral injury.
[2023-09-08 09:27] VITALS: BMI 28.3
[~2023-09-09] MED LIST: HYDROmorphone 0.5 MG/0.5 ML SYRINGE IVP PRN; KETOROLAC 30 MG/ML 1 ML VIAL ONE; LIDOCAINE 1% (10MG/ML) FOR IV START INTRADERMA PRN; LIDOCAINE 1% INJ 10MG/ML (20 ML MDV) ONE; MIDAZOLAM 2 MG/2 ML VIAL IV PRN; MIDAZOLAM 2 MG/2 ML VIAL ONE; PROPOFOL 10 MG/ML 20 ML VIAL IV ONE; SUCCINYLCHOLINE CHLORIDE 200 MG/10 ML VIAL IV ONE; fentaNYL (PF) 50 MCG/ML 2 ML AMP ONE
--- NOTE | 2023-09-09 08:03 | XR ---
EXAMINATION TYPE: XR KUB DATE OF EXAM: 09/09/2023 HISTORY: Pain Comparison: None. Single KUB is submitted for interpretation. Findings: Right renal calculi: None Visualized. Right ureteral calculi: Double pigtail right-sided ureteral stent is in place. Calcific density at th e S4-S5 level measuring 3 mm. Left renal calculi: None Visualized. Left ureteral calculi: None Visualized. Pelvic calcifications: Yes Bowel gas pattern is unremarkable. No free air. No mass effects. IMPRESSION: 1. Double pigtail right-sided ureteral stent is in place. Calcific density at the S4-S5 level measuri ng 3 mm.
[2023-09-09] MEDS: LACTATED RINGERS 1,000 ML IV SCH (08:15)
[2023-09-09] MEDS: ONDANSETRON 4 MG/2 ML VIAL IVP ONE (08:28)
[2023-09-09] MEDS: DEXAMETHASONE SOD PHOSPHATE 4 MG/ML 1 ML VIAL IV ONE (08:28)
--- NOTE | 2023-09-09 09:39 | P.OP ---
Date of Procedure: 09/09/23 Preoperative Diagnosis: Right UPJ calculus Postoperative Diagnosis: Right ureteral calculus Procedure(s) Performed: Cystoscopy, right ureteral stent removal, right ureteroscopy with Holmium laser lithotripsy Anesthesia: JASWINDER Surgeon: Ed Ragland Estimated Blood Loss (ml): 0 IV fluids (ml): 400 Pathology: none sent Condition: stable Disposition: PACU Indications for Procedure: The patient is a 52-year-old white female who underwent a left donor nephrectomy approximately 25 years ago. She was treated for UTI during a , but has no other history of UTIs or urolithiasis. She presented recently with acute right flank pain radiating to the abdomen. CT scan showed evidence of moderate right hydronephrosis due to a 5 mm right UPJ calculus. Urine and blood cultures showed E. coli. She underwent placement of a right ureteral stent on August 27, 2023 and has been treated with antibiotics. She now comes for removal of her UPJ calculus. Operative Findings: Right proximal ureteral calculus, dusted completely. Description of Procedure: The patient was taken to the operating room and placed in the dorsolithotomy position, with legs supported in Ethan stirrups. The external genitalia was prepped and draped sterilely. The 30 lens was used to introduce the 21-Ind[place] Urrutia cystoscopic sheath through the urethra and into the bladder under direct vision. The bladder was examined in its entirety. The bladder appeared unremarkable, and surprisingly there was no edema surrounding the right ureteral orifice. Grasping forceps were used to grasp the distal end of the right ureteral stent, which was removed along with the cystoscope. The [place] Boa flexible ureteroscope was advanced into the bladder, and the right ureteral orifice was cannulated. The ureteroscope was slowly advanced under direct vision, until the calculus was seen within the right proximal ureter. The 272 micron Holmium laser probe was passed through the ureteroscope, and lithotripsy was performed utilizing a dusting mode. This was continued until there were no calculus fragments exceeding 1 mm. The calculus was not dense and fragmented readily. Inspection of the ureter showed no evidence of ureteral tra joan. The ureteroscope was slowly withdrawn under direct vision. The patient tolerated the procedure well and was taken to the recovery room in stable condition. [facility] [place] Procedure Acuity: Elective Stone Size and Location: 5 mm, right proximal ureter Ureteral Dilation: No Ureteral Access Sheath Used: No Stone Sent for Analysis: No All Stones/Fragments Were Removed with a Basket: No Complications: No Preoperative Antibiotics Given: Yes Stent Placed: No Discharge Medications: Ciprofloxacin
--- NOTE | 2023-09-09 09:47 | FL ---
Fluoroscopy History: CYSTO LITHO 10 sec [place] .[address] DAP dose right lithotripsy, stent removal
[2023-09-09 10:09] VITALS: TEMP 97.2
[2023-09-09 10:51] VITALS: RESP 16
[2023-09-09 11:33] VITALS: BP 149/83; PULSE 67
== END | disposition home or self-care (01) ==
LOC: OR 07:31
PROVIDERS: ATTEND Urology
DX: N13.2 Hydronephrosis with renal and ureteral calculous obstruction (principal); E78.5 Hyperlipidemia, unspecified; I10 Essential (primary) hypertension; I25.2 Old myocardial infarction; F17.210 Nicotine dependence, cigarettes, uncomplicated; Z94.0 Kidney transplant status; Z90.5 Acquired absence of kidney; Z79.899 Other long term (current) drug therapy
CPT/HCPCS: 74018; 52353; J2250; J0330; J1100; J0690; J2405; J2001; J3010; J1885; J2704